=== PATIENT | female | born 1960 ===

== ENCOUNTER → 2018-11-30 | Outpatient (CLI) | payer MEDICAID, OTHER ==
[~2018-11-30] MED LIST: IOHEXOL 100 ML ONE; METOPROLOL 5 MG INJ ONE; NITROGLYCERIN AEROSOL (4.9 GM) ONE; SOD CHLORIDE 0.9% 100 ML ONE
== END | disposition home or self-care (01) ==
LOC: C/S 08:37
PROVIDERS: ATTEND Internal Medicine
DX: R94.39 Abnormal result of other cardiovascular function study (principal); R06.02 Shortness of breath
CPT/HCPCS: 75571; 75574; Q9967; Z7610